=== PATIENT | female | born 2000 | race African-American/Black ===

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

== ENCOUNTER 2021-06-11 12:39 | Emergency (ER) | payer OTHER ==
[~2021-06-11] VITALS: Ht 165.1 cm; Wt 73.9 kg
[2021-06-11 12:39] VITALS: BP 128/71
[~2021-06-11 12:39] MED LIST changes: -BENZ200C70 PO; -MUCI600T31 PO; -ONDA4TAB6 PO
[2021-06-11] MEDS ORDERED: BENZ200C70 PO (19:31)
== END 2021-06-11 15:39 | disposition left against medical advice (07) ==
LOC: M ED 12:39
DX: Z53.21 Procedure and treatment not carried out due to patient leaving prior to being seen by health care provider (principal)

== ENCOUNTER 2021-06-11 16:24 | Emergency (ER) | payer OTHER ==
[~2021-06-11] VITALS: Ht 165.1 cm; Wt 73.9 kg
[2021-06-11 16:25] VITALS: BP 123/67
[2021-06-11 19:27] LABS: RSV AMPLIFICATION NEGATIVE (NEGATIVE)
[2021-06-11] MEDS ORDERED: BENZ200C70 PO (19:31)
== END 2021-06-11 19:46 | disposition home or self-care (01) ==
LOC: M ED 16:24
DX: J06.9 Acute upper respiratory infection, unspecified (principal); Z20.822 Contact with and (suspected) exposure to COVID-19; D64.9 Anemia, unspecified; Z79.899 Other long term (current) drug therapy
CPT/HCPCS: 87631; 99282; C9803; U0003

== ENCOUNTER → 2021-06-11 | Outpatient (CLI) | payer OTHER ==
[~2021-06-11] MED LIST: ACE65ERTAB PO; BENZ200C70 PO; FERR325T3 PO; IBUP-1114 PO; MUCI600T31 PO; ONDA4TAB6 PO
== END ==
LOC: M LABSMTC 13:41
PROVIDERS: ATTEND Student in an Organized Health Care Education/Training Program
DX: Z20.822 Contact with and (suspected) exposure to COVID-19 (principal)
CPT/HCPCS: C9803; U0003

== ENCOUNTER 2021-06-13 15:59 | Emergency (ER) | payer OTHER ==
[~2021-06-13] VITALS: Ht 165.1 cm; Wt 74.9 kg
[~2021-06-13 15:59] MED LIST changes: +BENZ200C70 PO
[2021-06-13] MEDS ORDERED: MUCI600T31 PO (19:13)
[2021-06-13] MEDS ORDERED: BENZ200C70 PO (19:13)
[2021-06-13] MEDS ORDERED: ONDA4TAB6 PO (19:13)
[2021-06-13 19:27] VITALS: BP 118/70
== END 2021-06-13 19:28 | disposition home or self-care (01) ==
LOC: M ED 15:59
DX: J06.9 Acute upper respiratory infection, unspecified (principal); Z20.822 Contact with and (suspected) exposure to COVID-19

== ENCOUNTER 2021-12-28 11:10 | Emergency (ER) | payer OTHER ==
[~2021-12-28] VITALS: Ht 165.1 cm; Wt 73.4 kg
[~2021-12-28 11:10] MED LIST changes: +MUCI600T31 PO; +ONDA4TAB6 PO
[2021-12-28] MEDS ORDERED: FAMOTIDINE 20 MG TAB PO ONE (16:05)
[2021-12-28] MEDS ORDERED: predniSONE 20 MG TAB PO ONE (16:05)
[2021-12-28] MEDS ORDERED: MEDR4PAK PO (16:07)
[2021-12-28] MEDS ORDERED: BENA25CA4 PO (16:08)
[2021-12-28 16:17] VITALS: BP 126/92
== END 2021-12-28 16:20 | disposition home or self-care (01) ==
LOC: M ED 11:10
DX: T78.40XA Allergy, unspecified, initial encounter (principal); R21 Rash and other nonspecific skin eruption; R22.0 Localized swelling, mass and lump, head
CPT/HCPCS: 99283; J7512

== ENCOUNTER 2022-03-02 09:17 | Emergency (ER) | payer OTHER ==
[~2022-03-02] VITALS: Ht 167.6 cm; Wt 72.1 kg
[~2022-03-02 09:17] MED LIST changes: +BENA25CA4 PO; +MEDR4PAK PO
[2022-03-02 09:18] VITALS: BP 119/79
[2022-03-02 09:55] LABS: BASO % 0.9 % (0.0-1.0); EOS % 0.9 % (0.0-3.0); HEMATOCRIT 36.5 % (36.0-47.0); HEMOGLOBIN 11.8 g/dl (12.0-15.5); LYMPH # 1.7 10^3/uL (1.5-5.0); LYMPH % 38.4 % (24.0-44.0); MEAN CORPUSCULAR HEMOGLOBIN 26.6 pg (27.0-33.0); MEAN CORPUSCULAR HGB CONC 32.3 g/dl (32.0-36.5); MEAN CORPUSCULAR VOLUME 82.4 fl (80.0-96.0); MONO # 0.6 10^3/uL (0.0-0.8); MONO % 13.2 % (2.0-8.0); NEUTROPHILS % 46.4 % (36.0-66.0); PLATELET COUNT, AUTOMATED 300 10^3/uL (150-450); RED BLOOD COUNT 4.43 10^6/uL (4.00-5.40); WHITE BLOOD COUNT 4.4 10^3/uL (4.0-10.0)
[2022-03-02 10:12] LABS: HCG, SERUM QUALITATIVE NEGATIVE (NEGATIVE)
[2022-03-02 10:27] LABS: BLOOD UREA NITROGEN 7 MG/DL (7-18); CALCIUM LEVEL 9.4 MG/DL (8.5-10.1); CARBON DIOXIDE LEVEL 28 MEQ/L (21-32); CHLORIDE LEVEL 108 MEQ/L (98-107); CREATININE FOR GFR 0.88 MG/DL (0.55-1.30); GLUCOSE, FASTING 89 MG/DL (70-100); POTASSIUM SERUM 4.4 MEQ/L (3.5-5.1); SODIUM LEVEL 138 MEQ/L (136-145); THYROID STIMULATING HORMONE 0.885 uIU/ML (0.463-3.98)
[2022-03-02] MEDS ORDERED: ISOVUE-370 76% 100ML VIAL As Ordered ONE (11:58)
[2022-03-02 12:09] LABS: CK-MB VALUE MASS < 1.0 NG/ML (<3.6); CPK CREATINE PHOSPHOKINASE 94 U/L (26-192); MB/CK RELATIVE INDEX 1.06 (< OR =4)
== END 2022-03-02 13:55 | disposition home or self-care (01) ==
LOC: M ED 09:17
DX: R07.9 Chest pain, unspecified (principal); R59.9 Enlarged lymph nodes, unspecified; I45.10 Unspecified right bundle-branch block; Z79.899 Other long term (current) drug therapy
CPT/HCPCS: 36415; 71046; 71275; 80048; 82550; 82553; 84443; 84484; 84703; 85025; 85379; 93005; 99284; Q9967

== ENCOUNTER → 2022-06-29 | Outpatient (CLI) | payer OTHER | LOC: M RAD 13:54 | PROVIDERS: ATTEND Physician Assistant Medical | DX: M79.671 Pain in right foot (principal) ==

== ENCOUNTER → 2023-03-26 | Outpatient (CLI) | payer OTHER | LOC: M RAD 12:34 | PROVIDERS: ATTEND Physician Assistant Surgical | DX: M25.531 Pain in right wrist (principal) ==

== ENCOUNTER 2023-05-06 10:30 | Emergency (ER) | payer OTHER ==
[~2023-05-06] VITALS: Ht 165.1 cm; Wt 68.1 kg
[2023-05-06 10:32] VITALS: BP 131/73; TEMP 98.4; O2SAT 100
[2023-05-06 13:17] LABS: CHLAMYDIA DNA AMPLIFICATION NEGATIVE (NEGATIVE); GC DNA AMPLIFICATION NEGATIVE (NEGATIVE)
== END 2023-05-06 14:15 | disposition home or self-care (01) ==
LOC: M ED 10:30
DX: Z11.3 Encounter for screening for infections with a predominantly sexual mode of transmission (principal); Z79.899 Other long term (current) drug therapy

== ENCOUNTER → 2023-07-28 | Outpatient (CLI) | payer OTHER | LOC: M SOG 10:51 | PROVIDERS: ATTEND Physician Assistant | DX: M25.531 Pain in right wrist (principal) ==

== ENCOUNTER 2023-08-21 07:27 | Emergency (ER) | payer OTHER ==
[~2023-08-21] VITALS: Ht 165.1 cm; Wt 68.4 kg
[2023-08-21] MEDS ORDERED: VITA1CAP25 (07:39)
[2023-08-21 08:54] LABS: BASO # 0.1 10^3/uL (0.0-0.2); BASO % 1.3 % (0.0-1.0); EOS # 0.1 10^3/uL (0.0-0.5); EOS % 1.3 % (0.0-3.0); HEMOGLOBIN 12.1 g/dl (12.0-15.5); LYMPH # 1.4 10^3/uL (1.5-5.0); LYMPH % 37.3 % (24.0-44.0); MEAN CORPUSCULAR HEMOGLOBIN 28.5 pg (27.0-33.0); MEAN CORPUSCULAR HGB CONC 33.6 g/dl (32.0-36.5); MEAN CORPUSCULAR VOLUME 84.7 fl (80.0-96.0); MONO # 0.5 10^3/uL (0.0-0.8); MONO % 13.2 % (2.0-8.0); NEUTROPHILS # 1.8 10^3/uL (1.5-8.5); NEUTROPHILS % 46.9 % (36.0-66.0); PLATELET COUNT, AUTOMATED 289 10^3/uL (150-450); RED BLOOD COUNT 4.25 10^6/uL (4.00-5.40); WHITE BLOOD COUNT 3.9 10^3/uL (4.0-10.0)
[2023-08-21 09:18] LABS: HCG, SERUM QUALITATIVE NEGATIVE (NEGATIVE); MAGNESIUM LEVEL 1.6 MG/DL (1.8-2.4)
[2023-08-21 09:20] LABS: ALBUMIN 3.5 G/DL (3.2-5.2); ALKALINE PHOSPHATASE 80 U/L (46-116); ALT/SGPT 12 U/L (7.0-40); AST/SGOT 10 U/L (<34); BILIRUBIN,TOTAL 0.3 MG/DL (0.3-1.2); BLOOD UREA NITROGEN 18 MG/DL (9-23); CALCIUM LEVEL 8.8 MG/DL (8.5-10.1); CARBON DIOXIDE LEVEL 26 MMOL/L (20-31); CHLORIDE LEVEL 107 MMOL/L (98-107); CREATININE FOR GFR 0.97 MG/DL (0.55-1.30); GLOMERULAR FILTRATION RATE > 60.0 (>60); GLUCOSE, FASTING 84 MG/DL (60-100); POTASSIUM SERUM 4.6 MMOL/L (3.5-5.1); SODIUM LEVEL 139 MMOL/L (136-145); TOTAL PROTEIN 6.5 G/DL (5.7-8.2)
[2023-08-21 09:21] LABS: RHEUMATOID FACTOR QUANT < 3.5 IU/ML (<14)
[2023-08-21 09:22] LABS: THYROID STIMULATING HORMONE 1.062 uIU/ML (0.55-4.78)
[2023-08-21] MEDS: MAGNESIUM OXIDE 400MG TAB (MAG-OX) PO ONE (10:11)
[2023-08-21 11:15] VITALS: BP 102/51; TEMP 99.6; O2SAT 99
[2023-08-22 15:25] LABS: HIV 1&2 SCREEN NEGATIVE (NEGATIVE)
== END 2023-08-21 11:37 | disposition home or self-care (01) ==
LOC: M ED 07:27
DX: E83.42 Hypomagnesemia (principal); E55.9 Vitamin D deficiency, unspecified; Z79.899 Other long term (current) drug therapy

== ENCOUNTER 2023-11-03 06:45 | Emergency (ER) | payer OTHER ==
[~2023-11-03] VITALS: Ht 167.6 cm; Wt 64.3 kg
[~2023-11-03 06:45] MED LIST changes: +VITA1CAP25
[2023-11-03 07:34] LABS: EOS # 0.1 10^3/uL (0.0-0.5); EOS % 1.7 % (0.0-3.0); HEMATOCRIT 37.3 % (36.0-47.0); HEMOGLOBIN 12.6 g/dl (12.0-15.5); LYMPH # 1.8 10^3/uL (1.5-5.0); LYMPH % 44.2 % (24.0-44.0); MEAN CORPUSCULAR HEMOGLOBIN 28.9 pg (27.0-33.0); MEAN CORPUSCULAR HGB CONC 33.8 g/dl (32.0-36.5); MEAN CORPUSCULAR VOLUME 85.6 fl (80.0-96.0); MONO # 0.4 10^3/uL (0.0-0.8); NEUTROPHILS # 1.8 10^3/uL (1.5-8.5); NEUTROPHILS % 44.1 % (36.0-66.0); PLATELET COUNT, AUTOMATED 293 10^3/uL (150-450); RED BLOOD COUNT 4.36 10^6/uL (4.00-5.40); WHITE BLOOD COUNT 4.1 10^3/uL (4.0-10.0)
[2023-11-03] MEDS: ONDANSETRON 4MG 2ML VIAL IV ONE (07:49)
[2023-11-03] MEDS: NS 1,000 ML IV ONE (07:49)
[2023-11-03 08:00] LABS: LIPASE 44 U/L (12-53)
[2023-11-03 08:02] LABS: ALBUMIN 3.8 G/DL (3.2-5.2); ALKALINE PHOSPHATASE 83 U/L (46-116); ALT/SGPT 15 U/L (7.0-40); AST/SGOT < 8 U/L (<34); BILIRUBIN,DIRECT 0.2 MG/DL (<0.4); BILIRUBIN,TOTAL 0.5 MG/DL (0.3-1.2); BLOOD UREA NITROGEN 13 MG/DL (9-23); CALCIUM LEVEL 9.6 MG/DL (8.5-10.1); CARBON DIOXIDE LEVEL 29 MMOL/L (20-31); CHLORIDE LEVEL 106 MMOL/L (98-107); CREATININE FOR GFR 0.89 MG/DL (0.55-1.30); GLOMERULAR FILTRATION RATE > 60.0 (>60); GLUCOSE, FASTING 83 MG/DL (60-100); POTASSIUM SERUM 4.2 MMOL/L (3.5-5.1); SODIUM LEVEL 138 MMOL/L (136-145); TOTAL PROTEIN 6.8 G/DL (5.7-8.2)
[2023-11-03] MEDS ORDERED: ISOVUE-370 76% 100ML VIAL As Ordered ONE (08:20)
[2023-11-03] MEDS: KETOROLAC 30 MG/ML 1ML VIAL IV ONE (09:55)
[2023-11-03 10:38] VITALS: BP 120/59; TEMP 98.1; O2SAT 98
== END 2023-11-03 10:40 | disposition home or self-care (01) ==
LOC: M ED 06:45
DX: M54.50 Low back pain, unspecified (principal); R10.30 Lower abdominal pain, unspecified; Z79.899 Other long term (current) drug therapy; Z87.42 Personal history of other diseases of the female genital tract
CPT/HCPCS: 74177; 80048; 80076; 81001; 83605; 83690; 84702; 85025; 96361; 96374; 96375; 99284; J1885; J2405; Q9967

== ENCOUNTER → 2024-01-05 | Outpatient (CLI) | payer OTHER ==
[~2024-01-05] MED LIST changes: +ONDA-282 PO; -ONDA4TAB6 PO
== END ==
LOC: M WHC 08:33
PROVIDERS: ATTEND Physician Assistant
DX: N63.20 Unspecified lump in the left breast, unspecified quadrant (principal); R22.2 Localized swelling, mass and lump, trunk

== ENCOUNTER 2024-04-25 07:34 | Emergency (ER) | payer OTHER ==
[~2024-04-25] VITALS: Ht 167.6 cm; Wt 71.8 kg
[~2024-04-25 07:34] MED LIST changes: +NAPR-885
[2024-04-25 09:29] LABS: BASO % 0.7 % (0.0-1.0); EOS # 0.1 10^3/uL (0.0-0.5); EOS % 1.2 % (0.0-3.0); HEMOGLOBIN 13.3 g/dl (12.0-15.5); LYMPH # 1.5 10^3/uL (1.5-5.0); LYMPH % 37.3 % (24.0-44.0); MEAN CORPUSCULAR HEMOGLOBIN 28.1 pg (27.0-33.0); MEAN CORPUSCULAR HGB CONC 33.3 g/dl (32.0-36.5); MEAN CORPUSCULAR VOLUME 84.6 fl (80.0-96.0); MONO # 0.4 10^3/uL (0.0-0.8); MONO % 9.3 % (2.0-8.0); NEUTROPHILS # 2.1 10^3/uL (1.5-8.5); NEUTROPHILS % 51.3 % (36.0-66.0); PLATELET COUNT, AUTOMATED 303 10^3/uL (150-450); RED BLOOD COUNT 4.73 10^6/uL (4.00-5.40); WHITE BLOOD COUNT 4.1 10^3/uL (4.0-10.0)
[2024-04-25 09:39] LABS: ERYTHROCYTE SEDIMENTATION RATE 6 mm/hr (0-20)
[2024-04-25 09:49] LABS: C REACTIVE PROTEIN QUANTITATIV < 0.40 MG/DL (<1.0)
[2024-04-25 09:50] LABS: BLOOD UREA NITROGEN 15 MG/DL (9-23); CALCIUM LEVEL 9.6 MG/DL (8.5-10.1); CARBON DIOXIDE LEVEL 30 MMOL/L (20-31); CHLORIDE LEVEL 107 MMOL/L (98-107); CREATININE FOR GFR 0.81 MG/DL (0.55-1.30); GLOMERULAR FILTRATION RATE > 60.0 (>60); GLUCOSE, FASTING 59 MG/DL (60-100); MAGNESIUM LEVEL 1.6 MG/DL (1.8-2.4); SODIUM LEVEL 141 MMOL/L (136-145)
[2024-04-25 09:51] LABS: HCG, SERUM QUALITATIVE NEGATIVE (NEGATIVE)
[2024-04-25] MEDS: NS 1,000 ML IV ONE (10:06)
[2024-04-25] MEDS: METOCLOPRAMIDE INJ 10MG/2ML VIAL IV ONE (10:08)
[2024-04-25] MEDS: diphenhydrAMINE 50MG/ML VIAL IV ONE (10:09)
[2024-04-25] MEDS: ACETAMINOPHEN 500 MG TAB PO ONE (10:09)
[2024-04-25] MEDS: methocarbamoL 500 MG TAB PO ONE (10:10)
[2024-04-25] MEDS: MAGNESIUM OXIDE 400MG TAB (MAG-OX) PO ONE (11:12)
[2024-04-25] MEDS ORDERED: IBUP-1720 PO (11:21)
[2024-04-25] MEDS ORDERED: HOME MED LIST COMPLETE! XX SCH (11:25)
[2024-04-25 11:58] VITALS: BP 116/63; TEMP 98.8; O2SAT 100
== END 2024-04-25 12:17 | disposition home or self-care (01) ==
LOC: M ED 07:34
DX: R51.9 Headache, unspecified (principal); M54.2 Cervicalgia; Z79.1 Long term (current) use of non-steroidal anti-inflammatories (NSAID)
CPT/HCPCS: 80048; 83735; 84703; 85025; 85652; 86140; 87389; 87880; 96361; 96374; 96375; 99283; J1100; J1200; J2765

== ENCOUNTER 2024-05-12 15:10 | Emergency (ER) | payer OTHER ==
[~2024-05-12] VITALS: Ht 167.6 cm; Wt 72.7 kg
[~2024-05-12 15:10] MED LIST changes: +IBUP-1720 PO
[2024-05-12 16:00] LABS: BASO % 0.8 % (0.0-1.0); EOS # 0.1 10^3/uL (0.0-0.5); EOS % 1.7 % (0.0-3.0); HEMATOCRIT 37.8 % (36.0-47.0); HEMOGLOBIN 12.8 g/dl (12.0-15.5); LYMPH # 1.7 10^3/uL (1.5-5.0); LYMPH % 36.7 % (24.0-44.0); MEAN CORPUSCULAR HGB CONC 33.9 g/dl (32.0-36.5); MEAN CORPUSCULAR VOLUME 85.5 fl (80.0-96.0); MONO # 0.6 10^3/uL (0.0-0.8); MONO % 11.9 % (2.0-8.0); NEUTROPHILS # 2.3 10^3/uL (1.5-8.5); NEUTROPHILS % 48.7 % (36.0-66.0); PLATELET COUNT, AUTOMATED 297 10^3/uL (150-450); RED BLOOD COUNT 4.42 10^6/uL (4.00-5.40); WHITE BLOOD COUNT 4.7 10^3/uL (4.0-10.0)
[2024-05-12 16:19] LABS: HCG, SERUM QUANTITATIVE 17.5 MIU/ML (<4.2)
[2024-05-12 16:20] LABS: BLOOD UREA NITROGEN 10 MG/DL (9-23); CALCIUM LEVEL 9.7 MG/DL (8.5-10.1); CARBON DIOXIDE LEVEL 27 MMOL/L (20-31); CHLORIDE LEVEL 111 MMOL/L (98-107); GLOMERULAR FILTRATION RATE > 60.0 (>60); GLUCOSE, FASTING 73 MG/DL (60-100); POTASSIUM SERUM 3.9 MMOL/L (3.5-5.1); SODIUM LEVEL 140 MMOL/L (136-145)
[2024-05-12 17:46] LABS: Trichomonas vaginalis (AMP) NOT DETECTED (NEGATIVE)
[2024-05-12 18:10] LABS: GC DNA AMPLIFICATION NEGATIVE (NEGATIVE)
[2024-05-12] MEDS: FLUCONAZOLE 50MG TABLET PO ONE (19:17)
[2024-05-12 19:24] VITALS: BP 127/57; TEMP 99.6; O2SAT 99
== END 2024-05-12 19:43 | disposition home or self-care (01) ==
LOC: M ED 15:10
DX: O03.9 Complete or unspecified spontaneous abortion without complication (principal)

== ENCOUNTER 2024-06-21 09:59 | Emergency (ER) | payer OTHER ==
[~2024-06-21] VITALS: Ht 167.6 cm; Wt 70.4 kg
[~2024-06-21 09:59] MED LIST changes: +EXCETAB32 PO; +IBUP200T46 PO; +VITA1CAP25 PO
[2024-06-21] MEDS ORDERED: ACET1TAB55 (11:12)
[2024-06-21 11:46] LABS: BASO % 1.2 % (0.0-1.0); EOS # 0.1 10^3/uL (0.0-0.5); EOS % 1.5 % (0.0-3.0); HEMATOCRIT 41.8 % (36.0-47.0); HEMOGLOBIN 14.3 g/dl (12.0-15.5); LYMPH # 1.5 10^3/uL (1.5-5.0); LYMPH % 45.4 % (24.0-44.0); MEAN CORPUSCULAR HEMOGLOBIN 29.5 pg (27.0-33.0); MEAN CORPUSCULAR HGB CONC 34.2 g/dl (32.0-36.5); MEAN CORPUSCULAR VOLUME 86.2 fl (80.0-96.0); MONO # 0.4 10^3/uL (0.0-0.8); MONO % 10.6 % (2.0-8.0); NEUTROPHILS # 1.4 10^3/uL (1.5-8.5); PLATELET COUNT, AUTOMATED 315 10^3/uL (150-450); RED BLOOD COUNT 4.85 10^6/uL (4.00-5.40); WHITE BLOOD COUNT 3.4 10^3/uL (4.0-10.0)
[2024-06-21 12:09] LABS: BLOOD UREA NITROGEN 13 MG/DL (9-23); CALCIUM LEVEL 10.7 MG/DL (8.5-10.1); CARBON DIOXIDE LEVEL 29 MMOL/L (20-31); CHLORIDE LEVEL 105 MMOL/L (98-107); CK-MB VALUE MASS < 1.0 NG/ML (<3.6); GLOMERULAR FILTRATION RATE > 60.0 (>60); GLUCOSE, FASTING 82 MG/DL (60-100); POTASSIUM SERUM 4.8 MMOL/L (3.5-5.1); SODIUM LEVEL 141 MMOL/L (136-145)
[2024-06-21 12:13] LABS: HCG, SERUM QUALITATIVE NEGATIVE (NEGATIVE)
[2024-06-21 12:41] LABS: HIV 1&2 SCREEN NEGATIVE (NEGATIVE)
[2024-06-21 12:44] LABS: CPK CREATINE PHOSPHOKINASE 77 U/L (34-145); MB/CK RELATIVE INDEX 1.29 (< OR =4)
[2024-06-21 14:15] VITALS: BP 113/65; O2SAT 100
[2024-06-21 14:26] VITALS: TEMP 99.4
== END 2024-06-21 14:36 | disposition home or self-care (01) ==
LOC: M ED 09:59
DX: R07.9 Chest pain, unspecified (principal); Z79.1 Long term (current) use of non-steroidal anti-inflammatories (NSAID); Z79.82 Long term (current) use of aspirin; Z79.899 Other long term (current) drug therapy

== ENCOUNTER → 2024-06-26 | Outpatient (CLI) | payer OTHER ==
[~2024-06-26] MED LIST changes: +ACET1TAB55; +ISOVUE-370 76% 100ML VIAL As Ordered ONE
== END ==
LOC: M RAD 08:50
PROVIDERS: ATTEND Physician Assistant Medical
DX: D50.9 Iron deficiency anemia, unspecified (principal)
CPT/HCPCS: 74177; Q9967

== ENCOUNTER 2024-06-28 10:41 | Day surgery (SDC) | payer OTHER ==
[~2024-06-28] VITALS: Ht 167.6 cm; Wt 70.1 kg
[~2024-06-28 10:41] MED LIST changes: -ISOVUE-370 76% 100ML VIAL As Ordered ONE; +LIDOCAINE 2% 100MG/5ML SDV (FOR ANES.) As Ordered ONE; +propofoL 200 MG/20 ML VIAL As Ordered ONE
[2024-06-28 13:48] VITALS: BP 120/52; O2SAT 100
== END 2024-06-28 13:53 | disposition home or self-care (01) ==
LOC: M OPP 10:41
PROVIDERS: ATTEND Internal Medicine Gastroenterology
DX: D50.9 Iron deficiency anemia, unspecified (principal); Z79.899 Other long term (current) drug therapy